=== PATIENT | male | born 1935 | race Caucasian/White ===

== ENCOUNTER 2016-10-07 12:39 | Observation (INO) | payer MEDICARE ==
[~2016-10-07] VITALS: Ht 175.3 cm; Wt 80.1 kg
[~2016-10-07 12:39] MED LIST: ALFU10TA11 PO; ASA/1TAB6 PO; CEFU500T61 PO; FINA5TAB9 PO; LOPE2CAP PO; MELA1TAB16 PO; TRAV2.5D5 BOTH_EYES; [UNRECOGNIZED DRUG - CODE] PO
[2016-10-07 12:50] VITALS: BP 138/69; PULSE 107; RESP 18; O2SAT 96
--- NOTE | 2016-10-07 14:20 | ED.REPORT ---
HPI-Trauma Minor / Fall Date of Service Oct 07, 2016 ED Provider: Maximus Richard MD The patient is an 81 year old male with history of metastatic rectal cancer and prostate cancer, who presents to the emergency department by EMS for increased confusion. The patient had a few ground level falls this morning with no injuries. He initially fell around 0600 today. His son went to his apartment to help and medics also were called. The patient seemed coherent and normal at this time. He fell again at about 0800. His [id number] came this time and the patient appeared confused, combative, and not like himself. She stayed with him until around 1000. Between this time and noon he got himself back into bed and when his son arrived to check on him he was acting very goofy and abnormal, so medics were called an he was brought to the emergency department. He denies any pain at this time. He was diagnosed with a UTI on September 14 and seemed to be more confused than normal during that time. His symptoms were improved until about 1 week ago when he started to become more confused. He had another urinalysis on the but his daughter is unsure what the results were. Nursing Notes Stated Complaint: GLF Chief Complaint: General Complaint Nursing Notes Reviewed: Yes Allergies: Coded Allergies: No Known Drug Allergies (Verified Allergy, Unknown, 10/07/16) PER H&P Scheduled Cholecalciferol (Vitamin D3) (Vitamin D3) 1,000 Unit Tab.chew 1,000 UNIT PO DAILY Finasteride (Finasteride) 5 Mg Tablet 5 MG PO DAILY Multivitamin (Once Daily) 1 Each Tablet 1 EACH PO DAILY Travoprost (Travatan Z) 5 Ml Drops 1 GTT BOTH_EYES HS Scheduled PRN Hydrocodone-Acetaminophen 5-325 mg (Hydrocodone-Acetaminophen 5-325 mg) 1 Each Tablet 1 TABLET PO q6 hours PRN PRN For Pain Melatonin/Pyridoxine (Melatonin 5 mg Tablet) 1 Each Tablet 1 EACH PO HS PRN PRN For Sleep General Time Seen by MD: 14:18 Chief Complaint Fall Hx Obtained From: Patient, Daughter, EMS Arrived By: Ambulance Onset Occurred: 5 - 8 hours ago Symptom Duration: Since onset Caused by: Fall on ground Context: Occurred at: Home injury Severity: Current: No pain currently Severity: Maximum: No pain Recent Healthcare: No recent hospitalization, Recent doctor visit Similar Sx Previous: No Past Medical History Past Medical History Notes: Oncologist: Dr. Ayala Past Medical History metastatic rectal cancer with mets to the lungs and liver prostate cancer with left-sided invasive adenocarcinoma Past Surgical History laparoscopic sigmoid loop colostomy RLL biopsy port a cath Smoking History Former Smoker Social History Other Social History: Good social support, , Local resident Ambulatory Status Independent Review of Systems Musculoskeletal: Denies: Back pain, Extremity pain, Neck pain Neurologic: Reports: Confusion, Denies: Headache Complete sys rev & neg: except as marked. Cardiovascular: Denies: Chest pain GI: Denies: Abdominal pain Physical Exam Initial Vital Signs Vital Signs (First) Date Time Temp Pulse Resp B/P Pulse Ox O2 Delivery O2 Flow Rate FiO2 10/07/16 12:50 37.2 107 18 138/69 96 Room Air Initial VS: Reviewed Head / Eyes: Atraumatic, Normocephalic, PERRL ENT: Mucous membranes moist, Conjunctiva normal, No scleral icterus Respiratory: Breath sounds normal, Clear to auscultation, No respiratory distress Cardiovascular: Regular rate & rhythm, Heart sounds normal, Intact distal pulses Lymphatic: No lymphadenopathy Extremities: Vascular intact, Neuro intact, No swelling, No tenderness Skin: Warm, Dry, No cyanosis Neurologic: Alert, Oriented, Nonfocal Psychiatric: Mood/affect normal, Behavior normal, Normal thought content General/Constitutional: Awake, Alert Alertness: Positive: Confused Neck: Atraumatic, Supple, Full range of motion, No swelling, Non-tender, No midline vertebral tend Abdomen: Soft, Non-tender, No guarding, No rebound, No distention Colostomy bag in place Interpretation & Diagnostics Interpretation & Diagnostics: Normal urinalysis from the 18th of this month. Lab Results Interpretation Result Diagram: 10/09/16 0605 10/09/16 0605 Test 10/07/16 15:43 10/07/16 15:45 Urine Color Yellow (YELLOW) Urine Appearance Clear (CLEAR,HAZY) Urine pH 5.5 (5.0-8.0) Urine Specific Pateros 1.025 (1.003-1.035) Urine Protein Tracemg/dL (NEG,TRACE) Urine Glucose (UA) Negativemg/dL (NEGATIVE) Urine Ketones Tracemg/dL (NEGATIVE) Urine Occult Blood Small (NEGATIVE) Urine Nitrite Negative (NEGATIVE) Urine Bilirubin Negative (NEGATIVE) Urine Urobilinogen Normalmg/dL (NORMAL) Urine Leukocyte Esterase Trace (NEGATIVE) Urine RBC 0-2/hpf (0-2) Urine WBC 6-10/hpf (0-5) Urine Epithelial Cells None/hpf (NONE-MOD) Urine Crystals None seen (NONE SEEN) Urine Bacteria Few/hpf (NONE-FEW) Urine Hyaline Casts None/lpf (NONE) Urine Granular Casts None seen (NONE SEEN) Urine Waxy Casts None seen (NONE SEEN) Urine Red Blood Cell Casts None seen (NONE SEEN) Urine White Blood Cell Casts None seen (NONE SEEN) Urine Mucus None seen (None Seen) Urine Trichomonas None seen (NONE SEEN) Urine Yeast None (NONE SEEN) Urinalysis Comment None Urine Culture Reflexed Indicated Procalcitonin 0.20ng/mL (See Comment) Hold Billingsley Top Tube Received (Received) ECG Interpretation ECG Interpretation: Sinus tachycardia with a rate of 101 Time: 13:54 Interpreted by: ED physician X-Ray Chest Interpretation Chest Xray Interpretation: IMPRESSION: 1. No acute process. 2. Decreased bilateral pulmonary masses. 3. The tip of the left chest wall po catheter may enter the azygos vein. This could be further assessed with chest CT with intravenous contrast, if clinically indicated. 4. Findings discussed with Dr. Richard on 10.07.16 at 1658 hrs. Dictated by: Kiet Sanders M.D. on 10/07/2016 at 16:57 Interpretation / Wet Read by: Interpret - Radiologist CT Head Interpretation IMPRESSION: 1. No acute intracranial process. 2. Moderate to severe atrophy and chronic microvascular ischemic changes. 3. Bilateral maxillary sinus fluid levels suggestive of sinusitis. Dictated by: Emelyn Amaya M.D. on 10/07/2016 at 16:55 Study: Head CT no contrast Interpretation / Wet Read by: Interpret - Radiologist Re-Eval/Medical Decision Source of Hx: Old records, EMS, Family Re-Evaluation/Progress #1: Time of Eval: 15:05 Re-Evaluation/Progress Note: Discussed plan for urinalysis and blood work. Re-Evaluation/Progress #2: Time of Eval: 16:40 Re-Evaluation/Progress Note: Discussed plan for admission with the patient's family. All questions were addressed. Consultation : Referral / Consult Name: Zana Chavez MD Consulted With: Hospitalist Requested Call at: 16:40 Call Returned at: 17:23 Protection Manager: Will see patient, Agrees with eval, Agrees with plan, Accepts admit Counseled Regarding: Diagnosis, Lab results, Need for admission Discharge & Departure Impression: Primary Impression: Acute delirium Disposition: ADMITTED TO HOSPITAL Discharge Condition All VS Reviewed: Yes Condition: Stable Referrals: Edilson Tenorio MD (PCP) Juana Larkin MD Scribe Attestation Portions of this note were transcribed by Bere Castro. I, Dr. Richard personally performed the history, physical exam and medical decision-making; I reviewed and confirmed the accuracy of the information in the transcribed note. Signed by:Anibal Perez, 10/07/2016and 2425. copies to: Edilson Tenorio MD; Juana Larkin MD, Kirk H MD Oct 07, 2016 14:20 Bere Castro Oct 07, 2016 14:30 (60-99) Calcium Level 8.9mg/dL (8.5-10.1) Total Bilirubin 0.6mg/dL (0.0-1.2) Aspartate Amino Transf (AST/SGOT) 30U/L (0-50) Alanine Aminotransferase (ALT/SGPT) 22U/L (0-44) Alkaline Phosphatase 146U/L (25-160) Total Protein 7.2g/dL (6.4-8.4) Albumin 3.4g/dL (3.4-5.0) Hold Billingsley Top Tube Received (Received) ECG Interpretation ECG Interpretation: Sinus tachycardia with a rate of 101 Time: 13:54 Interpreted by: ED physician X-Ray Chest Interpretation Chest Xray Interpretation: IMPRESSION: 1. No acute process. 2. Decreased bilateral pulmonary masses. 3. The tip of the left chest wall po catheter may enter the azygos vein. This could be further assessed with chest CT with intravenous contrast, if clinically indicated. 4. Findings discussed with Dr. Richard on 10.07.16 at 1658 hrs. Dictated by: Kiet Sanders M.D. on 10/07/2016 at 16:57 Interpretation / Wet Read by: Interpret - Radiologist CT Head Interpretation IMPRESSION: 1. No acute intracranial process. 2. Moderate to severe atrophy and chronic microvascular ischemic changes. 3. Bilateral maxillary sinus fluid levels suggestive of sinusitis. Dictated by: Emelyn Amaya, M.D. on 10/07/2016 at 16:55 Study: Head CT no contrast Interpretation / Wet Read by: Interpret - Radiologist Re-Eval/Medical Decision Source of Hx: Old records, EMS, Family Re-Evaluation/Progress #1: Time of Eval: 15:05 Re-Evaluation/Progress Note: Discussed plan for urinalysis and blood work. Re-Evaluation/Progress #2: Time of Eval: 16:40 Re-Evaluation/Progress Note: Discussed plan for admission with the patient's family. All questions were addressed. Consultation : Referral / Consult Name: Zana Chavez MD Consulted With: Hospitalist Requested Call at: 16:40 Call Returned at: 17:23 Protection Manager: Will see patient, Agrees with eval, Agrees with plan, Accepts admit Counseled Regarding: Diagnosis, Lab results, Need for admission Discharge & Departure Disposition: ADMITTED TO HOSPITAL Discharge Condition All VS Reviewed: Yes Condition: Stable Referrals: Edilson Tenorio MD (PCP) Juana Larkin MD Attestation Portions of this note were transcribed by Bere Castro. IDr. Richard personally performed the history, physical exam and medical decision-making; I reviewed and confirmed the accuracy of the information in the transcribed note. Signed by:Anibal Perez, 10/07/2016and 1725. copies to: Edilson Tenorio MD; Juana Larkin MD, Kirk H MD Oct 07, 2016 14:20 Bere Castro Oct 07, 2016 14:30
[2016-10-07 14:43] VITALS: BP 128/78; PULSE 109; RESP 16; O2SAT 97
[2016-10-07 15:56] LABS: APPEARANCE,URINE CLEAR (CLEAR,HAZY); COLOR,URINE YELLOW (YELLOW); OCCULT BLOOD,URINE SMALL (NEGATIVE); PH,URINE 5.5 (5.0-8.0); UROBILINOGEN,URINE NORMAL (NORMAL)
[2016-10-07 16:01] LABS: BASOPHILS % (AUTO) 0.1 % (0-3); EOSINOPHILS % (AUTO) 0.6 % (0-5); MONOCYTES % (AUTO) 6.7 % (4-12); Mean Corpuscular Hemoglobin 27.6 pg (27.0-35.0); NEUTROPHILS % (AUTO) 85.7 % (40-74); Platelet Count 222 bil/L (150-400)
--- NOTE | 2016-10-07 16:58 | DRSVH ---
PROCEDURE: CT BRAIN WITHOUT CONTRAST ([id number]) INDICATIONS: trauma TECHNIQUE: Noncontrast 4.5 mm thick angled axial sections acquired from the foramen magnum to the vertex, with c oronal reformats. COMPARISON: [facility], CT, CT BRAIN WO CON, 09/14/2016, 3:27. FINDINGS: Image quality: Excellent. CSF spaces: Basal cisterns are patent. No extra-axial fluid collections. The ventricles are symmet lyric in size and shape. Brain: No intracranial bleeds or masses. There is cerebral volume loss for age, with resultant vent ricular and sulcal prominence. There are periventricular and deep white matter chronic small vessel ischemic changes. There is intracranial internal carotid artery atherosclerosis. Skull and face: Calvarium and visualized facial bones appear intact, without suspicious lesions. Sinuses: Sinuses demonstrate fluid levels within the maxillary sinuses bilaterally. IMPRESSION: 1. No acute intracranial process. 2. Moderate to severe atrophy and chronic microvascular ischemic changes. 3. Bilateral maxillary sinus fluid levels suggestive of sinusitis. Dictated by: Emelyn Amaya M.D. on 10/07/2016 at 16:55 Approved by: Emelyn Amaya M.D. on 10/07/2016 at 16:57
--- NOTE | 2016-10-07 17:01 | DRSVH ---
PROCEDURE: X-RAY CHEST, TWO VIEWS ([id number]) INDICATIONS: confusion TECHNIQUE: 2 views of the chest were acquired. COMPARISON: [facility], CT, CT CHEST ABD PELVIS W CON, 12/05/2015, 15:01. [facility], CR, XR CHEST 1VW (PORTABLE), 09/14/2016, 2:43. FINDINGS: Surgical changes and devices: Left chest wall po catheter is present, tip of which is deviated pos teriorly, and may be within the superior aspect of the azygos vein. Lungs and pleura: No pleural effusions or pneumothorax. No evidence of pneumonia. Bilateral lung nod ules are present, as before, and appear to be slightly decreased. Mediastinum: Mediastinal contours are normal. Heart size is normal. Bones and chest wall: No suspicious bony abnormalities. Soft tissues appear unremarkable. IMPRESSION: 1. No acute process. 2. Decreased bilateral pulmonary masses. 3. The tip of the left chest wall po catheter may enter the azygos vein. This could be further ass essed with chest CT with intravenous contrast, if clinically indicated. 4. Findings discussed with Dr. Richard on 10.07.16 at 1658 hrs. Dictated by: Kiet Sanders M.D. on 10/07/2016 at 16:57 Approved by: Kiet Sanders M.D. on 10/07/2016 at 17:00
[2016-10-07 17:19] VITALS: BP 117/64; PULSE 89; RESP 18; O2SAT 97
[2016-10-07] MEDS ORDERED: HYDR-4003 PO (17:22)
[2016-10-07] MEDS ORDERED: 0.9% Sodium Chloride 1,000 ML IV SCH (17:29)
[2016-10-07] MEDS ORDERED: Ondansetron 2 mg/mL 2 mL Inj IVPUSH PRN (17:30)
[2016-10-07] MEDS ORDERED: MULT-666 PO (18:05)
[2016-10-07] MEDS ORDERED: CHOL10008 PO (18:05)
[2016-10-07] MEDS ORDERED: TRAV5DRO BOTH_EYES (18:05)
[2016-10-07 18:44] VITALS: BP 130/79; PULSE 99; RESP 22; O2SAT 96
[2016-10-07] MEDS ORDERED: HYDROcodone-APAP 5-325 mg Tablet PO PRN (19:20)
[2016-10-07 19:35] VITALS: PULSE 99
--- NOTE | 2016-10-07 19:48 | PCM.HPMED ---
Subjective Date of Service Oct 07, 2016 Primary Provider: Admitting Physician: Zana Chavez MD Primary Care Physician: Edilson Tenorio MD Attending Physician: Zana Chavez MD Chief Complaint: COnfusion History of Present Illness: Rui is an 81 year old male living at [facility] with history of metastatic rectal cancer and prostate cancer, who presented to the ED by EMS for increased confusion today. Per son and EMS report, the patient had a few ground level falls this morning with no injuries. He initially fell around 0600 today and the medics were called and assessed the patient. He reports he remembers falling and there was no sign of LOC or head trauma then. He also was noted to be coherent at that time by his daughter and the paramedics. A few hours later, he again had another unwitnessed GLF and his son arrived to help. They called the EMS again and it was noted that patient was more confused, with slowed speech and mentation. Son denied any facial asymmetry or focal weakness. Son reports that patient's mentation continued to worsen and he was disoriented to person, place, and time. Son reports that patient has not complained of any pain or discomfort the whole time and has not had any sick contacts, but there have been multiple cases of the Flu at [facility]. Son reports that patient did have a UTI a few weeks ago and had been improving from that. He has not noticed an increase in his ostomy output either. Review of Systems: Complete ROS negative except as stated in the HPI Allergies Coded Allergies: No Known Drug Allergies (Verified Allergy, Unknown, 10/07/16) PER H&P PMH metastatic rectal cancer with mets to the lungs and liver prostate cancer with left-sided invasive adenocarcinoma Past Surgical History laparoscopic sigmoid loop colostomy RLL biopsy port a cath Family History FAMILY HISTORY OF MALIGNANCY: Some form of cancer in his father, mother and sister. He knows not which, as well as three brothers, one had lung cancer. SOCIAL HISTORY: The patient quit smoking in 1959. He drinks occasional alcohol. He worked in [employer] in [employer] in [place]. He is seen with a very supportive son. He lives at a halfway center. Social History Hx Alcohol Use: Yes (RARELY) Hx Substance Use: No Smoking Status: Former Smoker Exam Vital Signs Vital Sign - Last Date Time Temp Pulse Resp B/P Pulse Ox O2 Delivery O2 Flow Rate FiO2 10/07/16 17:55 37.2 89 18 117/64 97 Room Air Exam Gen; Well developed male who appears in NAD, Cooperative HEENT: PERRLA, EOMI, Sclera anicteric, Oropharynx non-erythematous Neck: Soft, nontender, no JVD noted CV: RRR, with coarse holosystolic murmur Resp: Mild right sided wheezing, normal respiratory effort, no crackles noted Abd; Soft, NT, ND, Ostomy in place, lico-ostomy area c/d/i MSK: MS grossly intact, no clubbing or cyanosis Neuro: No focal weakness, Slowed speech, sensation grossly intact, Alert but not oriented to time or place. Skin: Warm, dry, intact, no rashes noted Psych: Slowed speech, flat affect, Lab and Diagnostics Result Diagram: 10/07/16 1545 10/07/16 1545 X-Rays, CTs and MRIs PROCEDURE: X-RAY CHEST, TWO VIEWS ([id number]) IMPRESSION: 1. No acute process. 2. Decreased bilateral pulmonary masses. 3. The tip of the left chest wall po catheter may enter the azygos vein. This could be further assessed with chest CT with intravenous contrast, if clinically indicated. 4. Findings discussed with Dr. Richard on 10.07.16 at 1658 hrs. Dictated by: Kiet Sanders M.D. on 10/07/2016 at 16:57 Approved by: Kiet Sanders M.D. on 10/07/2016 at 17:00 PROCEDURE: CT BRAIN WITHOUT CONTRAST ([id number]) IMPRESSION: 1. No acute intracranial process. 2. Moderate to severe atrophy and chronic microvascular ischemic changes. 3. Bilateral maxillary sinus fluid levels suggestive of sinusitis. Dictated by: Emelyn Amaya M.D. on 10/07/2016 at 16:55 Approved by: Emelyn Amaya M.D. on 10/07/2016 at 16:57 Assessment & Plan 81 yo M with history of metastatic rectal cancer and prostate cancer who presents by EMS for evaluation of sudden onset of AMS, weakness, and frequent falls. #Acute Encephalopathy, POA Likely associated with patient's weakness and frequent falls that started this morning. Patient was at baseline prior to this morning and was able to perform his own ADLs, ambulate with two canes, and converse fluently and smoothly. Son denies any change in medication except for addition of a small amount of Tylenol #3 about 1 month ago. No s/s of infection other than the mildly abnormal UA on admit. There is no increase WBC, but there is neutrophils of 85.7% Will obtain Viral PCR to r/o Influenza since there have been other cases at [facility]. Will continue to monitor overnight #Possible Urinary tract Infection, POA Trace LEs, and 6-10 wbc on UA. No Nitrites. Urine culture pending Patient started on IV Ceftriaxone in the ER. Will continue until cultures return. No blood cultures drawn prior to antibiotic initiation. #Hyponatremia, POA Na- 131 on admit. Likely due to poor intake. Will replenish with IV NS at 80mls/hr. Continue to monitor electrolytes and replenish prn. #Metastatic Rectal Cancer and Prostate Ca, POA Patient has elected not to pursue any treatment currently. Oncologist is Dr. Ayala Patient's AMS could also be a progression of his metastatic disease also. #Ostomy in place, POA No s/s of peristomal infection. Ostomy care ordered #Obstructive Uropathy,POA Secondary to Prostate Ca. Continue Finasteride #Bilateral Maxillary Sinusitis, POA This could explain patient's mild left shift, but not likely to cause such an acute change in mentation. Consider outpatient treatment if symptomatic. Tylenol prn pain/fever Bowel regimen prn constipation. Pain Evaluation: Adequate Pain Control VTE Prophylaxis: Sub-Q Heparin (Unfractionated) Resuscitation Status: CPR: Attempt Resuscitation Attending Statement The patient was seen and examined together with Dr. Collado on 10/07 and I agree with the history, exam and plan as outlined in the note above. copies to: Edilson Tenorio MD, Hong D DO Oct 07, 2016 18:21 Rogers Badillo MD Oct 07, 2016 21:04
[2016-10-07] MEDS: Heparin 5,000 Unit/mL Inj SUBQ SCH (20:07)
[2016-10-07] MEDS: 0.9% Sodium Chloride 1,000 ML IV SCH (20:07)
[2016-10-07] MEDS: cefTRIAXone Inj 2,000 MG in Dextrose 5% Minibag Plus 50 ML IV SCH (22:01)
[2016-10-08] VITALS (7 sets, daily range): BP systolic 109–157; BP diastolic 60–82; PULSE 76–90; RESP 18–22; O2SAT 94–99
[2016-10-08] MEDS: Heparin 5,000 Unit/mL Inj SUBQ SCH ×4 (00:11→23:59)
--- NOTE | 2016-10-08 05:33 | NUR ---
Admission/AMS Pt admitted from ED. Pt could have episodes of confusion which he pulled out his IV line and would speak a different language. Frequent re-orientation to present situation provided. Pt verbalizes understanding. Pt denies chest pain, sob, n/v and abd discomfort. IVF/ABx administered as scheduled. Hourly rounding done, bed is in lowest position, bed alarm on and fall precaution posted.
[2016-10-08 07:08] LABS: BASOPHILS % (AUTO) 0.2 % (0-3); EOSINOPHILS % (AUTO) 3.5 % (0-5); MONOCYTES % (AUTO) 12.5 % (4-12); Mean Corpuscular Hemoglobin 27.8 pg (27.0-35.0); Mean Corpuscular Volume 85.4 fL (81-100); Platelet Count 206 bil/L (150-400)
[2016-10-08] MEDS: 0.9% Sodium Chloride 1,000 ML IV SCH (08:20)
[2016-10-08] MEDS: cefTRIAXone Inj 2,000 MG in Dextrose 5% Minibag Plus 50 ML IV SCH (08:21)
[2016-10-08] MEDS ORDERED: cefTRIAXone Inj 2,000 MG in Dextrose 5% Minibag Plus 50 ML IV SCH (08:30)
--- NOTE | 2016-10-08 14:57 | PCM.PNMED ---
Subjective Date of Service Oct 08, 2016 Subjective Reports he had a good night of sleep and was able to eat some dinner. Denies any pain or new complaints. Daughter in Law was in room and reports that patient looks better than yesterday mentation luther, but does not seem back to baseline yet. Assessment & Plan 81 yo M with history of metastatic rectal cancer and prostate cancer who presents by EMS for evaluation of sudden onset of AMS, weakness, and frequent falls. #Acute Encephalopathy, POA Likely associated with patient's weakness and frequent falls that started this morning. Patient was at baseline prior to this morning and was able to perform his own ADLs, ambulate with two canes, and converse fluently and smoothly. Son denies any change in medication except for addition of a small amount of Tylenol #3 about 1 month ago. Urine culture is growing GNR, E. coli. Likely is the cause of patient's AMS. Tx as below. Viral PCR negative PT evaluation recommends SNF discharge for rehab #Urinary tract Infection, POA Trace LEs, and 6-10 wbc on UA. No Nitrites. UA culture growing E. coli, susc pending. Patient started on IV Ceftriaxone in the ER 10/06. Will continue until cultures return. No blood cultures drawn prior to antibiotic initiation. Patient clinically improving and left shift is improving. #Hyponatremia, POA, Resolved. Na- 131 on admit. Likely due to poor intake. IV fluids stopped 10/08 Continue to monitor electrolytes and replenish prn. #Metastatic Rectal Cancer and Prostate Ca, POA Patient has elected not to pursue any treatment currently. Oncologist is Dr. Ayala Family would like more information about Hospice care at this point. #Ostomy in place, POA No s/s of peristomal infection. Ostomy care ordered #Obstructive Uropathy,POA Secondary to Prostate Ca. Continue Finasteride #Bilateral Maxillary Sinusitis, POA This could explain patient's mild left shift, but not likely to cause such an acute change in mentation. Consider outpatient treatment if symptomatic. Tylenol prn pain/fever Bowel regimen prn constipation. Dispo: Likely discharge tomorrow if continues to medically improve. PT did recommend SNF for rehab. Pain Evaluation: Adequate Pain Control VTE Prophylaxis: Sub-Q Heparin (Unfractionated) Resuscitation Status: CPR: Attempt Resuscitation Attending Statement The patient was seen and examined together with Dr. Collado on 10/08/2016 and I agree with the history, exam and plan as outlined in the note above. Exam Vital Signs Vital Sign - Last Date Time Temp Pulse Resp B/P Pulse Ox O2 Delivery O2 Flow Rate FiO2 10/08/16 04:43 37.1 90 18 124/72 95 Room Air Intake and Output 10/07/16 10/07/16 10/08/16 Cumulative From/Thru 15:00 23:00 07:00 10/07/16 12:50 - 10/08/16 06:00 Intake Total 230 ml 1003 ml 1233 ml Balance 230 ml 1003 ml 1233 ml Intake Oral 300 ml 300 ml IV Total 230 ml 703 ml 933 ml # Voids 3 3 # Bowel Movements 0 0 Additional Information: Gen; Well developed male who appears in NAD, Cooperative Neck: Soft, nontender, CV: RRR, with coarse holosystolic murmur Resp: CTAB, normal effort Abd; Soft, NT, ND, Ostomy in place, lico-ostomy area c/d/i MSK: MS grossly intact, no clubbing or cyanosis Neuro: No focal weakness, Slowed speech, sensation grossly intact, Alert and oriented x 2 Skin: Warm, dry, intact, no rashes noted Psych: Slowed speech, regular affect today Lab and Diagnostics Result Diagram: 10/08/1638 10/08/16 0638 Bernardo Collado DO Oct 08, 2016 06:58 Zana Chavez MD Oct 09, 2016 10:01
--- NOTE | 2016-10-08 16:21 | NUR ---
Social Work Note Initial Assessment: D/A: The Pt is an 81 y/o male that was admitted under observation status for altered LOC as per EMR. The Pt's PCP is MD Edilson Tenorio and his primary insurance is [employer] Medicare, no LTC or VA benefits. His readmission risk score not listed. EMR reviewed, SW met with the Pt and the Pts daughter in law Louisa [phone] at [facility] to discuss role and discharge planning. The Pt lives at [facility] on the independent side and has a good support system in the area. The Pt does not have a DPOA, paperwork given. He expressed that his son Marc is the primary person for this role and that Louisa is his identified support person for all other needs, to include transportation home. Louisa reported that the Pt is mostly independent and utilizes some services at [facility] such as the dining facility and cleaning services. The Pt uses cane and walker. He does not drive and relies on his daughter in law for transportation needs. PT evaluation completed, recommending SNF via cabulance. SNF list given, no preference at this time. The Pt and family would like a hospice visit to explore all options. The main goal as reported by the Pt and family is for him to stay in his specific room at [facility] on the independent side. Hospice info visit requested Hospice to visit on 10/09/2016 at 10am. Pt and family informed. SW will continue to follow. P: Pt to be discharged when medically stable. PT evaluation completed, recommending SNF via cabulance. SNF explored, list provided. The Pt and family are interested in hospice, hospice info visit to be completed on 10/11/2016 at 10am to explore all options. SW will continue to follow regarding discharge plan, SNF via cablulance vs home with hospice. SRINIVASAN Shah Manager Assessment SRINIVASAN Montejo Addendum: 10/08/16 at 1621 by OXANA AGUAYO Amended: Links added.
--- NOTE | 2016-10-08 17:36 | NUR ---
Wound Care Wound care orders received, unclear exactly why. 81 yo male with stage 4 cancer admitted with weakness and falling at home. Pleasant and alert today , has managed his ostomy since it was placed back in February of this year by Dr Castro. Wafer was removed, skin inspection reveals peristomal skin to be normal, stoma is proud and healthy. Pt uses a [employer] 2 piece and does not wish to deviate from this system. Nursing can help manage ostomy as needed while in house.
--- NOTE | 2016-10-08 18:35 | NUR ---
Ostomy Pt ostomy bag was changed, and wound care evaluated site. No recommendations at the time. Pt had family at bedside all day, pt alert and oriented. Pt resting comfortably in bed with call light within reach, bed locked and low, intentional rounding.
--- NOTE | 2016-10-08 20:27 | NUR ---
Case Management: ANASTASIYA explained to patient and son Gopal at 1645, all questions answered. Signed original placed in chart, copy given to pt's son. Patient's hearing aids are not with him, so son signed. Madelaine Holman RN
[2016-10-09] VITALS (8 sets, daily range): BP systolic 104–119; BP diastolic 64–74; PULSE 72–90; RESP 18; O2SAT 94–98
--- NOTE | 2016-10-09 05:18 | NUR ---
Uneventful Pt pleasant and cooperative with care. Denies chest pain, sob, n/v and abd discomfort, VSS afebrile overnight. Occasional confusions but re-orientation is very effective. Hourly rounding done, call light within reach, bed is in lowest position, pt has slept most of the night.
[2016-10-09 06:55] LABS: BASOPHILS % (AUTO) 0.2 % (0-3); EOSINOPHILS % (AUTO) 5.8 % (0-5); MONOCYTES % (AUTO) 15.4 % (4-12); Mean Corpuscular Hemoglobin 27.4 pg (27.0-35.0); Mean Corpuscular Volume 85.8 fL (81-100); NEUTROPHILS % (AUTO) 66.1 % (40-74); Platelet Count 214 bil/L (150-400)
[2016-10-09] MEDS: Heparin 5,000 Unit/mL Inj SUBQ SCH ×2 (08:49→17:22)
[2016-10-09] MEDS: cefTRIAXone Inj 2,000 MG in Dextrose 5% Minibag Plus 50 ML IV SCH (09:11)
--- NOTE | 2016-10-09 15:04 | NUR ---
Social Work-readiness for discharge: data:EMR reviewed. Pt is on day 2 of hospitalization for alerted LOC per H&P. Pt will be ready to discharge tomorrow. Pt and family met with Hospice today and they did sign consents. KENYATTA spoke with Pati at Hospice who states they can have DME delivered to [facility] tomorrow 10/10 and then open with Pt on 10/11 between -. KENYATTA spoke with who is in agreement with discharge tomorrow. SW called pt's daughter in law Louisa [phone] and discuss discharge planning. Daughter in law in agreement with plan of discharge tomorrow after DME is set up at [facility]. Pt's son or daughter in law to provide transport back tomorrow. SW explained Hospice would be able to open with pt on Wednesday 10/11 between - and she is agreeable to this. Daughter in law working on getting hired assistance at [facility] for pt. SW will continue to follow. Assessment:Pt who will return to [facility] on Hospice. Plan:Pt to discharge tomorrow 10/10 after DME is delivered to [facility] from Hospice. Hospice to open on Friday between -. Family to provide transport tomorrow. SW will continue to follow. SRINIVASAN Montejo
--- NOTE | 2016-10-09 15:09 | PCM.PNMED ---
Subjective Date of Service Oct 09, 2016 Kalani Flores is doing much better this morning. Daughter reports his mentation is now back to baseline. They are awaiting hospice consultation today. Exam Vital Signs Vital Sign - Last Date Time Temp Pulse Resp B/P Pulse Ox O2 Delivery O2 Flow Rate FiO2 10/09/16 14:55 36.6 80 18 104/64 98 Room Air Intake and Output 10/08/16 10/08/16 10/09/16 Cumulative From/Thru 15:00 23:00 07:00 10/07/16 12:50 - 10/09/16 06:22 Intake Total 1671 ml 600 ml 3504 ml Output Total 150 ml 900 ml 1050 ml Balance 1521 ml -300 ml 2454 ml Intake Oral 892 ml 600 ml 1792 ml IV Total 779 ml 1712 ml Output Urine Total 150 ml 900 ml 1050 ml # Voids 3 2 8 # Bowel Movements 0 0 0 Exam Gen; Well developed male who appears in NAD, Cooperative CV: RRR, with coarse holosystolic murmur Resp: CTAB, normal effort Abd; Soft, NT, ND, Ostomy in place, lico-ostomy area c/d/i MSK: MS grossly intact, no clubbing or cyanosis Neuro: No focal weakness, Slowed speech, sensation grossly intact, Alert and oriented x 3 Skin: Warm, dry, intact, no rashes noted Psych: Appropriate mood and affect today IVs and Medications Medications Reviewed: Medications were reviewed in detail Lab and Diagnostics Result Diagram: 10/09/16 0610/09/16 06 X-Rays, CTs and MRIs PROCEDURE: X-RAY CHEST, TWO VIEWS ([id number]) IMPRESSION: 1. No acute process. 2. Decreased bilateral pulmonary masses. 3. The tip of the left chest wall po catheter may enter the azygos vein. This could be further assessed with chest CT with intravenous contrast, if clinically indicated. 4. Findings discussed with Dr. Richard on 10.07.16 at 1658 hrs. Dictated by: Kiet Sanders M.D. on 10/07/2016 at 16:57 Approved by: Kiet Sanders M.D. on 10/07/2016 at 17:00 PROCEDURE: CT BRAIN WITHOUT CONTRAST ([id number]) IMPRESSION: 1. No acute intracranial process. 2. Moderate to severe atrophy and chronic microvascular ischemic changes. 3. Bilateral maxillary sinus fluid levels suggestive of sinusitis. Dictated by: Emelyn Amaya M.D. on 10/07/2016 at 16:55 Approved by: Emelyn Amaya M.D. on 10/07/2016 at 16:57 Assessment & Plan 81 yo M with history of metastatic rectal cancer and prostate cancer who presents by EMS for evaluation of sudden onset of AMS, weakness, and frequent falls. #Acute Encephalopathy, POA, -Resolved Likely associated with patient's weakness and frequent falls that started this morning. Patient was at baseline prior to this morning and was able to perform his own ADLs, ambulate with two canes, and converse fluently and smoothly. Son denies any change in medication except for addition of a small amount of Tylenol #3 about 1 month ago. Urine culture is growing GNR, E. coli. Likely is the cause of patient's AMS. Tx as below. Viral PCR negative PT evaluation recommends SNF discharge for rehab, but family will be consulting with Hospice today. Will request further evaluation today. #Urinary tract Infection, POA, Improving Trace LEs, and 6-10 wbc on UA. No Nitrites. UA culture growing E. coli, susc pending. Patient started on IV Ceftriaxone in the ER 10/06. Cultures return hartmann sensitive E. coli. No blood cultures drawn prior to antibiotic initiation. Received 3rd dose of IV Rocephin today. Will dc abx today. #Hyponatremia, POA, Resolved. Na- 131 on admit. Likely due to poor intake. IV fluids stopped 10/08 Continue to monitor electrolytes and replenish prn. #Metastatic Rectal Cancer and Prostate Ca, POA Patient has elected not to pursue any treatment currently. Oncologist is Dr. Ayala Family will be meeting with Hospice today. #Ostomy in place, POA No s/s of peristomal infection. Ostomy care ordered #Obstructive Uropathy,POA Secondary to Prostate Ca. Continue Finasteride #Bilateral Maxillary Sinusitis, POA This could explain patient's mild left shift, but not likely to cause such an acute change in mentation. Consider outpatient treatment if symptomatic. Tylenol prn pain/fever Bowel regimen prn constipation. Dispo: Discharge tomorrow Pain Evaluation: Adequate Pain Control VTE Prophylaxis: Sub-Q Heparin (Unfractionated) VTE Mechanical Devices: Venous Foot Pump Resuscitation Status: CPR: Attempt Resuscitation Attending Statement Patient was seen and evaluated with Dr. Collado on 10/09/2016. I agree with the findings, assessment and plan of care as noted above. Bernardo Collado DO Oct 09, 2016 15:09 Zana Chavez MD Oct 10, 2016 13:17
--- NOTE | 2016-10-09 16:29 | NUR ---
Shift note Pleasant, cooperative pt, able to make needs known. SBA with FWW to bed for meals. on Tele, SR 80-90s. Pt denies pain. Colostomy draining liquid/brown stool. Hospice in to evaluate pt. Per KENYATTA, pt to be d/c tomorrow to [facility] Hospice. IV abx for UTI d/c now. Port in L chest NOT accessed. Bed in low position, call light in reach, will continue with frequent rounding.
[2016-10-09] MEDS: Alum-Mag Hydrox-Simeth 30 mL Suspension PO PRN (20:32)
--- NOTE | 2016-10-09 21:38 | NUR ---
Heartburn Pt complained of heartburn. Administered 30ml Maalox, effective. Pt reports "feeling better". Resting in bed with eyes closed. Will continue to monitor.
[2016-10-10] VITALS (8 sets, daily range): BP systolic 100–135; BP diastolic 61–82; PULSE 68–95; RESP 18–20; O2SAT 94–96
[2016-10-10] MEDS: Heparin 5,000 Unit/mL Inj SUBQ SCH ×3 (00:22→17:05)
--- NOTE | 2016-10-10 11:37 | NUR ---
Social Work: Readiness for d/c Data: Pt is on day 3 of hospitalization. EMR reviewed, pt discussed in rounds. states pt will remain in hospital until 10/11 when hospice can open. [employer] called pt's daughter in law Louisa [phone], who states she plans to grain picker pt on 10/11 at 9AM. Hospice equipment being delivered today. [employer] will continue to follow. Assessment: Pt going home on hospice. Plan: Pt will d/c on 10/11 at 9AM via POV with family member with hospice to open between 10-11AM. [employer] will continue to follow. SRINIVASAN Aburto
[2016-10-10] MEDS: Alum-Mag Hydrox-Simeth 30 mL Suspension PO PRN (14:06)
--- NOTE | 2016-10-10 17:56 | PCM.PNMED ---
Subjective Date of Service Oct 10, 2016 Subjective No new complaints today. Medically stable. Awaits for hospice admission 10/11 and leaving to [facility]. Exam Vital Signs Vital Sign - Last Date Time Temp Pulse Resp B/P Pulse Ox O2 Delivery O2 Flow Rate FiO2 10/10/16 16:51 36.6 84 18 135/81 94 Room Air Intake and Output 10/09/16 10/09/16 10/10/16 Cumulative From/Thru 15:00 23:00 07:00 10/07/16 12:50 - 10/10/16 05:18 Intake Total 720 ml 4224 ml Output Total 600 ml 1650 ml Balance 120 ml 2574 ml Intake Oral 720 ml 2512 ml IV Total 1712 ml Output Urine Total 600 ml 1650 ml # Voids 2 10 # Bowel Movements 0 0 Exam Gen; comfortable, sitting on couch. CV: RRR, with coarse holosystolic murmur Resp: CTAB, normal effort Abd; Soft, NT, ND, Ostomy in place, lico-ostomy area c/d/i MSK: MS grossly intact, no clubbing or cyanosis Neuro: No focal weakness, Slowed speech, sensation grossly intact, Alert and oriented x 3 Skin: Warm, dry, intact, no rashes noted Psych: Appropriate mood and affect today Lab and Diagnostics Result Diagram: 10/09/16 0605 10/09/16 0605 X-Rays, CTs and MRIs PROCEDURE: X-RAY CHEST, TWO VIEWS ([id number]) IMPRESSION: 1. No acute process. 2. Decreased bilateral pulmonary masses. 3. The tip of the left chest wall po catheter may enter the azygos vein. This could be further assessed with chest CT with intravenous contrast, if clinically indicated. 4. Findings discussed with Dr. Richard on 10.07.16 at 1658 hrs. Dictated by: Kiet Sanders M.D. on 10/07/2016 at 16:57 Approved by: Kiet Sanders M.D. on 10/07/2016 at 17:00 PROCEDURE: CT BRAIN WITHOUT CONTRAST ([id number]) IMPRESSION: 1. No acute intracranial process. 2. Moderate to severe atrophy and chronic microvascular ischemic changes. 3. Bilateral maxillary sinus fluid levels suggestive of sinusitis. Dictated by: Emelyn Amaya M.D. on 10/07/2016 at 16:55 Approved by: Emelyn Amaya M.D. on 10/07/2016 at 16:57 Assessment & Plan 81 yo M with history of metastatic rectal cancer and prostate cancer who presents by EMS for evaluation of sudden onset of AMS, weakness, and frequent falls. #Acute Encephalopathy, POA, -Resolved Likely associated with patient's weakness and frequent falls that started this morning. Patient was at baseline prior to this morning and was able to perform his own ADLs, ambulate with two canes, and converse fluently and smoothly. Son denies any change in medication except for addition of a small amount of Tylenol #3 about 1 month ago. Urine culture is growing GNR, E. coli. Likely is the cause of patient's AMS. Tx as below. Viral PCR negative PT evaluation recommends SNF discharge for rehab, but family will be consulting with Hospice today. Will request further evaluation today. #Urinary tract Infection, POA, Improving Trace LEs, and 6-10 wbc on UA. No Nitrites. UA culture growing E. coli, susc pending. Patient started on IV Ceftriaxone in the ER 10/06. Cultures return hartmann sensitive E. coli. No blood cultures drawn prior to antibiotic initiation. Received 3rd dose of IV Rocephin today. Will dc abx today. #Hyponatremia, POA, Resolved. Na- 131 on admit. Likely due to poor intake. IV fluids stopped 10/08 Continue to monitor electrolytes and replenish prn. #Metastatic Rectal Cancer and Prostate Ca, POA Patient has elected not to pursue any treatment currently. Oncologist is Dr. Ayala Family will be meeting with Hospice today. #Ostomy in place, POA No s/s of peristomal infection. Ostomy care ordered #Obstructive Uropathy,POA Secondary to Prostate Ca. Continue Finasteride #Bilateral Maxillary Sinusitis, POA This could explain patient's mild left shift, but not likely to cause such an acute change in mentation. Consider outpatient treatment if symptomatic. Tylenol prn pain/fever Bowel regimen prn constipation. Dispo: Discharge tomorrow when hospice open. VTE Prophylaxis: Sub-Q Heparin (Unfractionated) VTE Mechanical Devices: Venous Foot Pump Resuscitation Status: CPR: Attempt Resuscitation Attending Statement The patient was seen and examined together with Dr. Jimmy Duvall on 10/10/2016 and I agree with the history, exam and plan as outlined in the note above. Jimmy Duvall DO Oct 10, 2016 17:56 Zana Chavez MD Oct 11, 2016 13:30
--- NOTE | 2016-10-10 19:04 | NUR ---
Dayshift Pt ready for discharge, postponed for Hospice availability Tomorrow at 9AM. IV DC'd intact, ok with MD, tele DCd. NOC shift notified. Assisted Pt with shower and colostomy change. Pt able to handle most care for self with minimal assistance. Family in to visit periodically during day, one son reported pt has been feeling cold as of late and speaking more about end of life. No falls/close calls during shift, mostly uneventful.
[2016-10-11] MEDS: Heparin 5,000 Unit/mL Inj SUBQ SCH (00:16)
[2016-10-11 01:47] VITALS: BP 117/69; PULSE 84; RESP 18; O2SAT 95
[2016-10-11] MEDS: Alum-Mag Hydrox-Simeth 30 mL Suspension PO PRN (01:55)
--- NOTE | 2016-10-11 04:21 | NUR ---
Activity Pt remained in bed for the shift, alert and oriented x3. No complaints of pain or discomfort, cooperative with cares. Pt resting well for the evening. Will continue to monitor.
[2016-10-11 06:33] VITALS: BP 133/77; PULSE 83; RESP 18; O2SAT 96
--- NOTE | 2016-10-11 08:18 | PCM.DIMED ---
Bernardo Collado DO 10/11/16 0818: Discharge Instructions Date of Service Oct 11, 2016 Dates of Hospitalization Oct 07, 2016 at 17:39 Discharge Diagnosis Discharge Diagnosis #Acute Encephalopathy, -Resolved #Urinary tract Infection, Resolved #Hyponatremia, Resolved. #Metastatic Rectal Cancer and Prostate Ca #Ostomy in place #Obstructive Uropathy #Bilateral Maxillary Sinusitis Medication Instructions Continue taking your medications per hospice Diet Other (per hospice) Activity Other (per hospice) Patient Instructions You are being discharged home with Hospice today Follow-up Provider: Edilson Tenorio MD Follow-up with PCP in: 2 weeks Zana Chavez MD 10/11/16 1330: Bernardo Collado DO Oct 11, 2016 08:18 Zana Chavez MD Oct 11, 2016 13:30
--- NOTE | 2016-10-11 08:41 | NUR ---
Social Work: Discharge Data: Pt is on day 4 of hospitalization. EMR reviewed. D/C orders are in. Pt's family plans to pick pt up at 9AM this morning and hospice will open between 10 and 11AM. No further d/c planning needs. Assessment: Pt who will open with hospice. Plan: Pt will d/c home today via POV with family at 9AM. Hospice will open between 10am and 11am this morning. No further d/c planning needs. [employer] will continue to follow if needs arise. SRINIVASAN Aburto
--- NOTE | 2016-10-11 08:43 | NUR ---
DISCHARGE PAPERWORK REVIEWED, NO QUESTIONS AT THIS TIME pt denies distress/pain daughter has belongings pt transported to car via W/C
--- NOTE | 2016-10-11 15:23 | PCM.DC.MED ---
Discharge Summary Date of Service Oct 11, 2016 Dates of Hospitalization Date of Hospital Admission Oct 07, 2016 at 17:39 Date of Discharge: Oct 11, 2016 Providers: Admitting Physician: Zana Chavez MD Primary Care Physician: Edilson Tenorio MD Attending Physician: Zana Chavez MD Diagnosis at Time of Discharge Diagnosis at Time of Discharge #Acute Encephalopathy, -Resolved #Urinary tract Infection, Resolved #Hyponatremia, Resolved. #Metastatic Rectal Cancer and Prostate Ca #Ostomy in place #Obstructive Uropathy #Bilateral Maxillary Sinusitis Procedures XRay, CTs & MRIs PROCEDURE: X-RAY CHEST, TWO VIEWS ([id number]) IMPRESSION: 1. No acute process. 2. Decreased bilateral pulmonary masses. 3. The tip of the left chest wall po catheter may enter the azygos vein. This could be further assessed with chest CT with intravenous contrast, if clinically indicated. 4. Findings discussed with Dr. Richard on 10.07.16 at 1658 hrs. Dictated by: Kiet Sanders M.D. on 10/07/2016 at 16:57 Approved by: Kiet Sanders M.D. on 10/07/2016 at 17:00 PROCEDURE: CT BRAIN WITHOUT CONTRAST ([id number]) IMPRESSION: 1. No acute intracranial process. 2. Moderate to severe atrophy and chronic microvascular ischemic changes. 3. Bilateral maxillary sinus fluid levels suggestive of sinusitis. Dictated by: Emelyn Amaya M.D. on 10/07/2016 at 16:55 Approved by: Emelyn Amaya M.D. on 10/07/2016 at 16:57 Brief History Rui is an 81 year old male living at [facility] Living with history of metastatic rectal cancer and prostate cancer, who presented to the ED by EMS for increased confusion today. Per son and EMS report, the patient had a few ground level falls this morning with no injuries. He initially fell around 0600 today and the medics were called and assessed the patient. He reports he remembers falling and there was no sign of LOC or head trauma then. He also was noted to be coherent at that time by his daughter and the paramedics. A few hours later, he again had another unwitnessed GLF and his son arrived to help. They called the EMS again and it was noted that patient was more confused, with slowed speech and mentation. Son denied any facial asymmetry or focal weakness. Son reports that patient's mentation continued to worsen and he was disoriented to person, place, and time. Son reports that patient has not complained of any pain or discomfort the whole time and has not had any sick contacts, but there have been multiple cases of the Flu at [facility]. Son reports that patient did have a UTI a few weeks ago and had been improving from that. He has not noticed an increase in his ostomy output either. Hospital Course 81 yo M with history of metastatic rectal cancer and prostate cancer who presents by EMS for evaluation of sudden onset of AMS, weakness, and frequent falls. #Acute Encephalopathy, POA, -Resolved Likely associated with patient's weakness and frequent falls that started this morning. Patient was at baseline prior to admission and was able to perform his own ADLs, ambulate with two canes, and converse fluently and smoothly. Son denies any change in medication except for addition of a small amount of Tylenol #3 about 1 month ago. Patient's Urine culture grew out GNR, E. coli. Likely is the cause of patient's AMS. Tx as below. Viral PCR was negative PT evaluation recommends SNF discharge for rehab, but family will be consulted with Hospice and will be discharging home with Hospice. #Urinary tract Infection, POA, resolved Trace LEs, and 6-10 wbc on UA. No Nitrites. UA culture grew pansensitive E.coli . Patient started on IV Ceftriaxone in the ER 10/06 and finished 3 doses of IV Ceftriaxone #Hyponatremia, POA, Resolved. Na- 131 on admit. Likely due to poor intake. IV fluids stopped 10/08 Continue to monitor electrolytes and replenish prn. #Metastatic Rectal Cancer and Prostate Ca, POA Patient has elected not to pursue any treatment currently. Oncologist is Dr. Ayala Family met with Hospice and plan is to go to [facility] with Hospice #Ostomy in place, POA No s/s of peristomal infection. Ostomy care ordered #Obstructive Uropathy,POA Secondary to Prostate Ca. Continue Finasteride #Bilateral Maxillary Sinusitis, POA This could explain patient's mild left shift, but not likely to cause such an acute change in mentation. Consider outpatient treatment if symptomatic. Tylenol prn pain/fever Bowel regimen prn constipation. Exam Vital Signs (Last) Date Time Temp Pulse Resp B/P Pulse Ox O2 Delivery O2 Flow Rate FiO2 10/11/16 06:33 36.5 83 18 133/77 96 Room Air Exam Gen; comfortable, sitting on couch. CV: RRR, with coarse holosystolic murmur Resp: CTAB, normal effort Abd; Soft, NT, ND, Ostomy in place, lico-ostomy area c/d/i MSK: MS grossly intact, no clubbing or cyanosis Neuro: No focal weakness. Alert and oriented x 3 Skin: Warm, dry, intact, no rashes noted Psych: Appropriate mood and affect today Test 10/07/16 15:43 10/07/16 15:45 10/08/16 06:38 10/09/16 06:05 Urine Color Yellow (YELLOW) Urine Appearance Clear (CLEAR,HAZY) Urine pH 5.5 (5.0-8.0) Urine Specific [place] 1.025 (1.003-1.035) Urine Protein Tracemg/dL (NEG,TRACE) Urine Glucose (UA) Negativemg/dL (NEGATIVE) Urine Ketones Tracemg/dL (NEGATIVE) Urine Occult Blood Small (NEGATIVE) Urine Nitrite Negative (NEGATIVE) Urine Bilirubin Negative (NEGATIVE) Urine Urobilinogen Normalmg/dL (NORMAL) Urine Leukocyte Esterase Trace (NEGATIVE) Urine RBC 0-2/hpf (0-2) Urine WBC 6-10/hpf (0-5) Urine Epithelial Cells None/hpf (NONE-MOD) Urine Crystals None seen (NONE SEEN) Urine Bacteria Few/hpf (NONE-FEW) Urine Hyaline Casts None/lpf (NONE) Urine Granular Casts None seen (NONE SEEN) Urine Waxy Casts None seen (NONE SEEN) Urine Red Blood Cell Casts None seen (NONE SEEN) Urine White Blood Cell Casts None seen (NONE SEEN) Urine Mucus None seen (None Seen) Urine Trichomonas None seen (NONE SEEN) Urine Yeast None (NONE SEEN) Urinalysis Comment None Urine Culture Reflexed Indicated Procalcitonin 0.20ng/mL (See Comment) Hold [place] Top Tube Received (Received) Total Bilirubin 0.5mg/dL (0.0-1.2) Aspartate Amino Transf (AST/SGOT) 25U/L (0-50) Alanine Aminotransferase (ALT/SGPT) 19U/L (0-44) Alkaline Phosphatase 128U/L (25-160) Total Protein 6.0g/dL (6.4-8.4) Albumin 3.1g/dL (3.4-5.0) White Blood Count 6.6th/mm3 (3.8-10.1) Red Blood Count 4.01mil/mm3 (4.40-5.80) Hemoglobin 11.0g/dL (13.8-17.2) Hematocrit 34.4% (41.0-50.0) Mean Corpuscular Volume 85.8fL (81-100) Mean Corpuscular Hemoglobin 27.4pg (27.0-35.0) Mean Corpuscular Hemoglobin Concent 32.0% (32.0-37.0) Red Cell Distribution Width 15.7% (12.3-15.4) Platelet Count 214bil/L (150-400) Neutrophils (%) (Auto) 66.1% (40-74) Lymphocytes (%) (Auto) 11.9% (14-46) Monocytes (%) (Auto) 15.4% (4-12) Eosinophils (%) (Auto) 5.8% (0-5) Basophils (%) (Auto) 0.2% (0-3) Sodium Level 137mEq/L (134-144) Potassium Level 4.2mEq/L (3.5-5.2) Chloride Level 100mEq/L (97-108) Carbon Dioxide Level 26mmol/L (18-29) Blood Urea Nitrogen 16mg/dL (8-27) Creatinine 1.01mg/dL (0.76-1.27) Estimat Glomerular Filtration Rate 75mL/min (>59) Glucose Level 99mg/dL (60-99) Calcium Level 8.9mg/dL (8.5-10.1) Discharge Medications Discharge Medications Cholecalciferol (Vitamin D3) (Vitamin D3) 1,000 Unit Tab.chew 1,000 UNIT PO DAILY (Reported) Finasteride (Finasteride) 5 Mg Tablet 5 MG PO DAILY (Reported) Multivitamin (Once Daily) 1 Each Tablet 1 EACH PO DAILY (Reported) Travoprost (Travatan Z) 5 Ml Drops 1 GTT BOTH_EYES HS (Reported) As needed Hydrocodone-Acetaminophen 5-325 mg (Hydrocodone-Acetaminophen 5-325 mg) 1 Each Tablet 1 TABLET PO q6 hours PRN PRN For Pain (Reported) Melatonin/Pyridoxine (Melatonin 5 mg Tablet) 1 Each Tablet 1 EACH PO HS PRN PRN For Sleep (Reported) Additional med instructions Continue taking your medications per hospice Followup Plan Disposition: Home with Hospice Discharge Diet: Other (per hospice) Discharge Activity: Other (per hospice) Patient Instructions You are being discharged home with Hospice today Follow-up Provider: Edilson Tenorio MD Follow-up with PCP in: 2 weeks Time spent 35 minutes Attending Statement The patient was seen and examined together with Dr. Collado on 10/11/2016 and I agree with the history, exam and plan as outlined in the note above. copies to: Edilson Tenorio MD, Hong D DO Oct 11, 2016 15:23 Zana Chavez MD Oct 12, 2016 13:14
== END 2016-10-11 09:05 | disposition home or self-care (01) ==
LOC: EDBD 12:39 → EDSEX 12:39 → SED 12:39 → INTOOBSV 17:39 → MPC 17:39 → OBSVTOIN 17:39 → MPC 18:18
PROVIDERS: ADMIT Family Medicine; ATTEND Hospitalist
DX: G93.40 Encephalopathy, unspecified (principal); N39.0 Urinary tract infection, site not specified; E87.1 Hypo-osmolality and hyponatremia; C20 Malignant neoplasm of rectum; C61 Malignant neoplasm of prostate; C78.00 Secondary malignant neoplasm of unspecified lung; C78.7 Secondary malignant neoplasm of liver and intrahepatic bile duct; B96.20 Unspecified Escherichia coli [E. coli] as the cause of diseases classified elsewhere; J32.0 Chronic maxillary sinusitis; N13.9 Obstructive and reflux uropathy, unspecified; Z93.3 Colostomy status; R29.6 Repeated falls; W18.30XA Fall on same level, unspecified, initial encounter; Z91.81 History of falling; Y93.01 Activity, walking, marching and hiking; Y92.039 Unspecified place in apartment as the place of occurrence of the external cause; Y99.8 Other external cause status
CPT/HCPCS: 36415; 70450; 71020; 80048; 80053; 81000; 82308; 85025; 87077; 87086; 87186; 87633; 93005; 97162; 97530; 99285; G0378; J0696; J1644; J7030